=== PATIENT | male | born 1965 | race Caucasian/White ===

== ENCOUNTER → 2020-05-04 13:19 | Outpatient (POV) | payer BC, SELFPAY | PROVIDERS: Visit Provider Dermatology | DX: Z00.00 Encounter for general adult medical examination without abnormal findings (principal) ==

== ENCOUNTER → 2020-08-07 08:11 | Outpatient (CLI) | payer OTHER, SELFPAY ==
[2020-08-07 10:33] LABS: Chloride 102 mmol/L (98-107); Potassium 4.7 mmoL/L (3.5-5.1); Sodium 139 mmol/L (136-145)
[2020-08-07 10:36] LABS: Alanine Aminotransferase 73 U/L (12-78); Albumin Level 4.7 g/dl (3.5-5.0); Alkaline Phosphatase 89 U/L (38-126); Anion Gap 13.7 mEq/L (5-15); Aspartate Amino Transferase 44 U/L (17-59); Bilirubin,Total 0.5 mg/dl (0.2-1.3); Blood Urea Nitrogen 16 mg/dl (9-20); Calcium 9.5 mg/dl (8.4-10.2); Carbon Dioxide 28 mmol/L (22.0-30.0); Cholesterol 144 mg/dl (140-200); Estimated Glomerular Filt Rate 101 ml/min (>60); GFR (African American) 122 ML/MIN (>60); Globulin 2.4 g/dL (1.3-3.2); Glucose 221 mg/dl (74-100); HDL Cholesterol 24 mg/dl (40-60); Total Protein,Serum 7.1 g/dl (6.3-8.2)
[2020-08-07 10:48] LABS: Direct LDL Cholesterol 49.62 mg/dL (100-129)
[2020-08-07 11:44] LABS: Triglycerides 600 mg/dl (30-150)
[2020-08-07 12:25] LABS: Prostate Specific Ag Screen 0.3 ng/ml (0.0-4.0)
[2020-08-07 13:18] LABS: Hemoglobin A1C 8.6 % (4.0-6.0)
== END ==
PROVIDERS: Visit Provider Physician Assistant
DX: E11.9 Type 2 diabetes mellitus without complications (principal); E78.2 Mixed hyperlipidemia; Z12.5 Encounter for screening for malignant neoplasm of prostate
CPT/HCPCS: 36415; 80053; 80061; 83036; G0103

== ENCOUNTER 2020-09-03 15:28 | Inpatient (IN) | payer OTHER, SELFPAY ==
[2020-09-03 15:41] VITALS: BP 150/82; PULSE 100; RESP 18; TEMP 37.1; O2SAT 94; BMI 96.6
[2020-09-03 16:12] LABS: Basophils # 0.1 K/mm3 (0-0.2); Basophils % 0.5 % (0.1-2.0); Eosinophils # 0.1 K/mm3 (0.0-0.4); Eosinophils % 0.4 % (0.1-12.0); Lymphocytes # 1.3 K/mm3 (0.7-4.5); Lymphocytes % 11.8 % (10-50); Mean Corpuscular HGB Conc 34.8 g/dL (31.8-35.4); Mean Corpuscular Hemoglobin 31.3 pg (27.0-31.2); Mean Corpuscular Volume 89.7 fl (80-94); Mean Platelet Volume 8.6 fl (7.4-10.4); Monocytes # 0.3 K/mm3 (0.1-1.0); Monocytes % 2.4 % (1.7-9.3); Neutrophils # 9.4 K/mm3 (1.8-7.8); Platelet Count 214 K/mm3 (142-424); Red Blood Count 5.46 M/mm3 (4.60-6.20); Red Cell Distribution Width 13.5 % (11.5-17.5)
[2020-09-03 16:24] LABS: MANUAL DIFFERENTIAL MANUAL DIFFERENTIAL (MANUAL DIFF)
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
[2020-09-03 16:40] LABS: Alanine Aminotransferase 294 U/L (12-78); Albumin Level 4.7 g/dl (3.5-5.0); Albumin/Globulin Ratio 1.7 (1.1-1.8); Alkaline Phosphatase 145 U/L (38-126); Anion Gap 18.9 mEq/L (5-15); Aspartate Amino Transferase 163 U/L (17-59); Bilirubin,Total 2.2 mg/dl (0.2-1.3); Blood Urea Nitrogen 15 mg/dl (9-20); Calcium 9.8 mg/dl (8.4-10.2); Carbon Dioxide 17 mmol/L (22.0-30.0); Chloride 102 mmol/L (98-107); Creatinine Clearance Estimated 87 mL/min (50-200); Estimated Glomerular Filt Rate 78 ml/min (>60); GFR (African American) 94 ML/MIN (>60); Globulin 2.7 g/dL (1.3-3.2); Glucose 221 mg/dl (74-100); Potassium 3.9 mmoL/L (3.5-5.1); Sodium 134 mmol/L (136-145); Total Protein,Serum 7.4 g/dl (6.3-8.2)
[2020-09-03 17:17] LABS: POC Glucose,Bedside 200 (70-110)
[2020-09-03 17:25] LABS: Lymphocytes % 19 % (10-50); Monocytes % 1 % (2-9); Neutrophils % 80 % (42-76); Platelet Estimate Normal; RBC Morphology Normal; Total Cells Counted 100
--- NOTE | 2020-09-03 18:42 | PC.NURSE ---
PT NEW ADMIT. ONLY COMPLAINT THUS FAR IS ITCHING OF THE HANDS MAINLY. SPOKE WITH MARYAM OLVERA, SHE STATED SHE PUT ORDERS IN FOR THAT. PRN MEDICATION GIVEN WITH FAVORABLE RESULTS. PT DOES PRESENT WITH WELP/RASH T/O HIS BODY. HE IS UNSURE WHAT CAUSED THE RASH. HE STATED IT STARTED LAST NIGHT. VSS. CALL LIGHT WITHIN REACH. WILL CONT. TO MONITOR.
[2020-09-03 20:00] VITALS: BP 173/87; PULSE 89; RESP 20; TEMP 36.7; O2SAT 93
[2020-09-03 21:15] LABS: POC Glucose,Bedside 318 (70-110)
[2020-09-04 04:00] VITALS: BP 135/77; PULSE 97; RESP 17; TEMP 36.6; O2SAT 94
--- NOTE | 2020-09-04 04:40 | PC.NURSE ---
Pt has rested well this shift. States that the itching has improved some. Rash continues along with additionalPt is tachycardic swelling in hands and wrists. Pt tachycardic this AM. Other VSS. Lungs CTA. BS x4. No other concerns. Will continue to monitor.
[2020-09-04 06:00] VITALS: BMI 43.4
[2020-09-04 06:28] LABS: POC Glucose,Bedside 299 (70-110)
[2020-09-04 07:17] LABS: Basophils % 0.2 % (0.1-2.0); Eosinophils % 0.1 % (0.1-12.0); Hematocrit 45.5 % (42.0-52.0); Hemoglobin 15.5 g/dL (14.1-18.0); Lymphocytes % 10.7 % (10-50); Mean Corpuscular HGB Conc 34.1 g/dL (31.8-35.4); Mean Corpuscular Hemoglobin 31.2 pg (27.0-31.2); Mean Corpuscular Volume 91.5 fl (80-94); Mean Platelet Volume 8.6 fl (7.4-10.4); Monocytes # 0.2 K/mm3 (0.1-1.0); Monocytes % 1.6 % (1.7-9.3); Neutrophils # 8.5 K/mm3 (1.8-7.8); Neutrophils % 87.4 % (37.0-80.0); Platelet Count 211 K/mm3 (142-424); Red Blood Count 4.97 M/mm3 (4.60-6.20); Red Cell Distribution Width 13.4 % (11.5-17.5); White Blood Count 9.8 K/mm3 (4.8-10.8)
[2020-09-04 07:24] LABS: Alanine Aminotransferase 249 U/L (12-78); Albumin Level 4.3 g/dl (3.5-5.0); Albumin/Globulin Ratio 1.5 (1.1-1.8); Alkaline Phosphatase 129 U/L (38-126); Anion Gap 17.9 mEq/L (5-15); Aspartate Amino Transferase 110 U/L (17-59); Bilirubin,Total 1.3 mg/dl (0.2-1.3); Blood Urea Nitrogen 18 mg/dl (9-20); Calcium 9.2 mg/dl (8.4-10.2); Carbon Dioxide 20 mmol/L (22.0-30.0); Chloride 101 mmol/L (98-107); Creatinine Clearance Estimated 97 mL/min (50-200); Estimated Glomerular Filt Rate 88 ml/min (>60); GFR (African American) 106 ML/MIN (>60); Globulin 2.9 g/dL (1.3-3.2); Glucose 266 mg/dl (74-100); Potassium 3.9 mmoL/L (3.5-5.1); Sodium 135 mmol/L (136-145); Total Protein,Serum 7.2 g/dl (6.3-8.2)
[2020-09-04 07:34] VITALS: BP 139/72; PULSE 85; RESP 18; TEMP 36.6; O2SAT 95
[2020-09-04 07:37] LABS: MANUAL DIFFERENTIAL MANUAL DIFFERENTIAL (MANUAL DIFF)
[2020-09-04 08:22] LABS: Lymphocytes % 7 % (10-50); Monocytes % 3 % (2-9); Neutrophils % 90 % (42-76); Platelet Estimate Normal; RBC Morphology Normal; Total Cells Counted 100
--- NOTE | 2020-09-04 08:55 | HMH.ACPN2 ---
Internal Medicine - PN: Subj *Date: 09/04/20 *Time: 08:55 Interval history: The patient is seen this morning and states that he feels much better. There is less evidence of urticaria. He does complain of swelling of his lips. He is unable to pin down the etiology of his allergic reaction. In reviewing foods it does not appear obvious that there was a problem in this regard. He did state that he was doing yard work on Sunday before his symptoms started on . The recent change in medications certainly are a focus of concern regarding the allergic reaction. Exam Vital signs and Labs for Last 24 Hours: Temp Pulse Resp BP Pulse Ox 97.8 F 85 18 139/72 95 09/04/20 07:34 09/04/20 07:34 09/04/20 07:34 09/04/20 07:34 09/04/20 07:34 Laboratory Results - last 24 hr 09/03/20 16:00: WBC 11.0 H, RBC 5.46, Hgb 17.0, Hct 49.0, MCV 89.7, MCH 31.3 H, MCHC 34.8, RDW 13.5, Plt Count 214, MPV 8.6, Neut % (Auto) 85.0 H, Lymph % (Auto) 11.8, [place] % (Auto) 2.4, Eos % (Auto) 0.4, Baso % (Auto) 0.5, Neut # (Auto) 9.4 H, Lymph # (Auto) 1.3, [place] # (Auto) 0.3, Eos # (Auto) 0.1, Baso # (Auto) 0.1, Total Counted 100, Neutrophils % (Manual) 80 H, Lymphocytes % (Manual) 19, Monocytes % (Manual) 1 L, Platelet Estimate Normal, RBC Morphology Normal 09/03/20 16:00: Sodium 134 L, Potassium 3.9, Chloride 102, Carbon Dioxide 17 L, Anion Gap 18.9 H, BUN 15, Creatinine 1.00, Estimated Creat Clear 87, Estimated GFR 78, Est GFR ( Amer) 94, Glucose 221 H, Calcium 9.8, Total Bilirubin 2.2 H, AST 163 H, ALT 294 H, Alkaline Phosphatase 145 H, Total Protein 7.4, Albumin 4.7, Globulin 2.7, Albumin/Globulin Ratio 1.7 09/03/20 17:03: POC Glucose 200 H 09/03/20 20:50: POC Glucose 318 H* 09/04/20 06:08: POC Glucose 299 H 09/04/20 06:14: WBC 9.8, RBC 4.97, Hgb 15.5, Hct 45.5, MCV 91.5, MCH 31.2, MCHC 34.1, RDW 13.4, Plt Count 211, MPV 8.6, Neut % (Auto) 87.4 H, Lymph % (Auto) 10.7, [place] % (Auto) 1.6 L, Eos % (Auto) 0.1, Baso % (Auto) 0.2, Neut # (Auto) 8.5 H, Lymph # (Auto) 1.0, [place] # (Auto) 0.2, Eos # (Auto) 0.0, Baso # (Auto) 0.0, Total Counted 100, Neutrophils % (Manual) 90 H, Lymphocytes % (Manual) 7 L, Monocytes % (Manual) 3, Platelet Estimate Normal, RBC Morphology Normal 09/04/20 06:14: Sodium 135 L, Potassium 3.9, Chloride 101, Carbon Dioxide 20 L, Anion Gap 17.9 H, BUN 18, Creatinine 0.90, Estimated Creat Clear 97, Estimated GFR 88, Est GFR ( Amer) 106, Glucose 266 H D, Calcium 9.2, Total Bilirubin 1.3, AST 110 H D, ALT 249 H, Alkaline Phosphatase 129 H, Total Protein 7.2, Albumin 4.3, Globulin 2.9, Albumin/Globulin Ratio 1.5 I & O for Last 24 hours: Intake & Output 09/01/20 09/02/20 09/03/20 09/04/20 11:59 11:59 11:59 11:59 Intake Total 840 / 840 Balance 840 / 840 Weight 303 lb 6 oz Microbiology Reports for the Last 24 Hours: Microbiology 09/03/20 16:00 Nasopharyngeal Coronavirus COVID-19 PCR - Final Narrative: Interestingly his eosinophil count is not elevated. - Constitutional no acute distress - *Routine HEENT Exam Head: Present: normocephalic (But with surgical scars on his scalp.), facial swelling (His lips were bright pink and somewhat swollen. He also has some facial erythema in the glabellar area) Eye: Present: PERRL ENT: Present: mucous membranes moist - *Routine Respiratory Exam Present: CTA bilaterally. Absent: wheezes - *Routine Cardiovascular Exam Present: RRR - *Routine Abdominal Exam Present: soft. Absent: tenderness - *Routine Extremities Exam Present: edema (Trace of edema present.) - *Routine Skin Exam Present: intact. Absent: urticaria (But there is some mild erythema noted of his extremities.) Assessment and Plan (1) Allergic reaction Status: Acute Category: Medical Code(s): T78.40XA - Allergy, unspecified, initial encounter (2) Urticaria Status: Acute Category: Medical Code(s): L50.9 - Urticaria, unspecified (3) Hypertension Status: Chronic C
[2020-09-04 10:03] LABS: Hemoglobin A1C 8.5 % (4.0-6.0)
--- NOTE | 2020-09-04 11:04 | HMH.PHAVTE ---
[facility] Pharmacy VTE Monitoring - Patient Demographics Admission date: 09/03/20 Report Date: 09/04/20 Time: 11:04 Allergies/Adverse Reactions: Patient Allergies No Known Allergies Allergy (Unverified 09/04/20 08:33) Height: 1.78 m Weight: 137.609 kg Patient Problems: Current Active Problems Allergic reaction (Acute) Urticaria (Acute) Hypertension (Chronic) Hyperlipidemia (Chronic) Type 2 diabetes mellitus (Chronic) History of melanoma (Chronic) - VTE Risk Labs: VTE Related Lab Results Hgb 15.5 g/dL (14.1-18.0) 09/04/20 06:14 Hct 45.5 % (42.0-52.0) 09/04/20 06:14 Plt Count 211 K/mm3 (142-424) 09/04/20 06:14 BUN 18 mg/dl (9-20) 09/04/20 06:14 Creatinine 0.90 mg/dl (0.66-1.25) 09/04/20 06:14 Estimated Creat Clear 97 mL/min (50-200) 09/04/20 06:14 VTE Score: 3 VTE Risk Level: Low Risk - Prophylaxis VTE Prophylaxis Ordered?: Yes Types of VTE Prophylaxis: TEDS Knee High Location of Applied Device: Bilateral Lower Extremeties
[2020-09-04 11:48] LABS: POC Glucose,Bedside 357 (70-110)
--- NOTE | 2020-09-04 12:05 | HMH.PHAINT ---
MEDICATION RECONCILIATION COMPLETED ON PATIENT USING EXTERNAL FILL HISTORY FROM PHARMACY, LIST PROVIDED BY SPOUSE, AND CALL TO [facility] IN [place]. -ROBERT HUERTASD
--- NOTE | 2020-09-04 15:36 | PC.NURSE ---
pt has done ok today. this am pt c/o swelling to lips and rash returning to chest, md already aware when he rounded. orders put in and carried out. pt has not since complained of any new rash returning. pt is independent and had as shower today. vss. will cont. to monitor.
[2020-09-04 15:38] VITALS: BP 154/87; PULSE 94; RESP 16; TEMP 36.8; O2SAT 97
[2020-09-04 16:42] LABS: POC Glucose,Bedside 427 (70-110)
[2020-09-04 20:00] VITALS: BP 161/97; PULSE 99; RESP 17; TEMP 36.8; O2SAT 93
--- NOTE | 2020-09-04 20:13 | PC.NURSE ---
notified of FSBS 476. Humalog 15 units administered. Recheck in 4 hrs.
[2020-09-04 21:37] LABS: POC Glucose,Bedside 476 (70-110)
[2020-09-05 00:02] LABS: POC Glucose,Bedside 380 (70-110)
--- NOTE | 2020-09-05 00:20 | PC.NURSE ---
notified of FSBS 380. No new orders at this time.
--- NOTE | 2020-09-05 03:22 | PC.NURSE ---
No acute changes since last assessment. Pt has slept well the later part of shift. Was up to chair early in night with c/o itching. Medicated per jul. FSBS has been elevated this shift. MD aware. BP has been elevated. Pt continues to be tachycardic. No other complaints or concerns. Will continue to monitor.
[2020-09-05 03:51] VITALS: BP 131/74; PULSE 74; RESP 20; TEMP 36.6; O2SAT 94
[2020-09-05 05:17] VITALS: BMI 43.0
--- NOTE | 2020-09-05 05:36 | PC.NURSE ---
Pt's swelling has improved in hands and wrists. He continues to scratch at skin. Pt states that he has been itching more tonight. BP has improved this AM.
[2020-09-05 06:42] LABS: POC Glucose,Bedside 322 (70-110)
[2020-09-05 07:37] VITALS: BP 159/88; PULSE 80; RESP 18; TEMP 36.6; O2SAT 91
[2020-09-05 10:12] LABS: MANUAL DIFFERENTIAL MANUAL DIFFERENTIAL (MANUAL DIFF)
[2020-09-05 10:26] LABS: Alanine Aminotransferase 180 U/L (12-78); Albumin Level 4.2 g/dl (3.5-5.0); Albumin/Globulin Ratio 1.4 (1.1-1.8); Alkaline Phosphatase 128 U/L (38-126); Anion Gap 10.8 mEq/L (5-15); Aspartate Amino Transferase 54 U/L (17-59); Basophils % 0.2 % (0.1-2.0); Bilirubin,Total 0.7 mg/dl (0.2-1.3); Blood Urea Nitrogen 29 mg/dl (9-20); Carbon Dioxide 29 mmol/L (22.0-30.0); Chloride 98 mmol/L (98-107); Creatinine Clearance Estimated 87 mL/min (50-200); Eosinophils % 0.3 % (0.1-12.0); Estimated Glomerular Filt Rate 78 ml/min (>60); GFR (African American) 94 ML/MIN (>60); Globulin 3.1 g/dL (1.3-3.2); Hematocrit 46.2 % (42.0-52.0); Hemoglobin 15.7 g/dL (14.1-18.0); Lymphocytes # 1.3 K/mm3 (0.7-4.5); Lymphocytes % 8.9 % (10-50); Mean Corpuscular HGB Conc 33.9 g/dL (31.8-35.4); Mean Corpuscular Hemoglobin 31.1 pg (27.0-31.2); Mean Corpuscular Volume 91.7 fl (80-94); Mean Platelet Volume 8.4 fl (7.4-10.4); Monocytes # 0.4 K/mm3 (0.1-1.0); Monocytes % 2.6 % (1.7-9.3); Neutrophils # 12.7 K/mm3 (1.8-7.8); Platelet Count 261 K/mm3 (142-424); Potassium 4.8 mmoL/L (3.5-5.1); Red Blood Count 5.03 M/mm3 (4.60-6.20); Red Cell Distribution Width 13.7 % (11.5-17.5); Sodium 133 mmol/L (136-145); Total Protein,Serum 7.3 g/dl (6.3-8.2); White Blood Count 14.4 K/mm3 (4.8-10.8)
[2020-09-05 10:28] LABS: Glucose 425 mg/dl (74-100)
[2020-09-05 10:29] LABS: Lymphocytes % 9 % (10-50); Monocytes % 4 % (2-9); Neutrophils % 87 % (42-76); Platelet Estimate Normal; RBC Morphology Normal; Total Cells Counted 100
[2020-09-05 11:57] LABS: POC Glucose,Bedside 386 (70-110)
--- NOTE | 2020-09-05 12:34 | HMH.ACPN2 ---
Internal Medicine - PN: Subj *Date: 09/05/20 *Time: 12:34 Interval history: He continues to have flareups of the rash. Last night he had ice cream both chocolate and vanilla and this seemed to trigger a flareup. He has been itching most of the night. He does not appear to be swollen. Alkaline phosphatase remains elevated. ALT and AST have improved. White blood cell count remains elevated. H. pylori results are pending. Exam Vital signs and Labs for Last 24 Hours: Temp Pulse Resp BP Pulse Ox 97.9 F 80 18 159/88 H 91 L 09/05/20 07:37 09/05/20 07:37 09/05/20 07:37 09/05/20 07:37 09/05/20 07:37 Laboratory Results - last 24 hr 09/04/20 16:27: POC Glucose 427 H* 09/04/20 19:57: POC Glucose 476 H* 09/04/20 23:54: POC Glucose 380 H* 09/05/20 06:18: POC Glucose 322 H* 09/05/20 10:09: Sodium 133 L, Potassium 4.8 D, Chloride 98, Carbon Dioxide 29 D, Anion Gap 10.8, BUN 29 H D, Creatinine 1.00, Estimated Creat Clear 87, Estimated GFR 78, Est GFR ( Amer) 94, Glucose 425 H*, Calcium 9.0, Total Bilirubin 0.7, AST 54 D, ALT 180 H D, Alkaline Phosphatase 128 H, Total Protein 7.3, Albumin 4.2, Globulin 3.1, Albumin/Globulin Ratio 1.4 09/05/20 10:09: WBC 14.4 H D, RBC 5.03, Hgb 15.7, Hct 46.2, MCV 91.7, MCH 31.1, MCHC 33.9, RDW 13.7, Plt Count 261, MPV 8.4, Neut % (Auto) 88.0 H, Lymph % (Auto) 8.9 L, [place] % (Auto) 2.6, Eos % (Auto) 0.3, Baso % (Auto) 0.2, Neut # (Auto) 12.7 H, Lymph # (Auto) 1.3, [place] # (Auto) 0.4, Eos # (Auto) 0.0, Baso # (Auto) 0.0, Total Counted 100, Neutrophils % (Manual) 87 H, Lymphocytes % (Manual) 9 L, Monocytes % (Manual) 4, Platelet Estimate Normal, RBC Morphology Normal 09/05/20 11:40: POC Glucose 386 H* I & O for Last 24 hours: Intake & Output 09/03/20 09/04/20 09/05/20 09/06/20 11:59 11:59 11:59 11:59 Intake Total 840 / 840 1080 / 1080 Balance 840 / 840 1080 / 1080 Weight 303 lb 6 oz 300 lb 2 oz - Constitutional no acute distress - *Routine HEENT Exam Head: Present: normocephalic ENT: Present: mucous membranes moist (Lips do not appear swollen) - *Routine Respiratory Exam Present: CTA bilaterally - *Routine Cardiovascular Exam Present: RRR - *Routine Abdominal Exam Present: soft. Absent: tenderness - *Routine Extremities Exam Absent: edema - *Routine Skin Exam Absent: urticaria (No urticaria but there is a subtle erythema of the trunk and extremities.) Assessment and Plan (1) Allergic reaction Status: Acute Category: Medical Code(s): T78.40XA - Allergy, unspecified, initial encounter (2) Urticaria Status: Acute Category: Medical Code(s): L50.9 - Urticaria, unspecified (3) Hypertension Status: Chronic Category: Medical Code(s): I10 - Essential (primary) hypertension (4) Hyperlipidemia Status: Chronic Category: Medical Code(s): E78.5 - Hyperlipidemia, unspecified (5) Type 2 diabetes mellitus Status: Chronic Category: Medical Code(s): E11.9 - Type 2 diabetes mellitus without complications (6) History of melanoma Status: Chronic Category: Medical Code(s): Z85.820 - Personal history of malignant melanoma of skin (7) Elevated liver function tests Status: Acute Category: Medical Code(s): R79.89 - Other specified abnormal findings of blood chemistry - Assessment and plan all Dx Assessment and Plan for all problems:: I am adding Lantus for control of the blood sugars. The blood sugars are additionally elevated by the steroids. Ultrasound of the liver is ordered. Arthritis profile will also be ordered.
--- NOTE | 2020-09-05 12:41 | XR_ITS ---
PROCEDURE INFORMATION: Exam: XR Chest Exam date and time: 09/05/2020 12:41 PM Age: 55 years old Clinical indication: Other: Urticaria of unknown origin; Additional info: Urticaria of unknown etiology TECHNIQUE: Imaging protocol: XR of the chest. Views: 2 views. COMPARISON: CR CXR CHEST(2 VIEWS-NOT PORTABLE) 01/28/2014 9:51 AM FINDINGS: Lungs: Unremarkable. No consolidation. Pleural spaces: Unremarkable. No pleural effusion. No pneumothorax. Heart/Mediastinum: Unremarkable. No cardiomegaly. Bones/joints: Unremarkable. IMPRESSION: No acute findings.
[2020-09-05 12:55] LABS: Uric Acid 6.6 mg/dl (3.5-8.5)
[2020-09-05 13:17] LABS: Erythrocyte Sedimentation Rate 90 mm/hr (0-20)
[2020-09-05 16:00] VITALS: BP 123/67; PULSE 77; RESP 18; TEMP 36.3; O2SAT 96
[2020-09-05 16:59] LABS: POC Glucose,Bedside 403 (70-110)
--- NOTE | 2020-09-05 17:18 | PC.NURSE ---
pt is a&ox4. he has c/o itching to bilat arms and chest this am, no further complaints. pt ambulated t/o halls. vss. call light within reach. will cont. to monitor.
--- NOTE | 2020-09-05 17:41 | PC.NURSE ---
per radiology, they contacted the corporate vp advertising & online technical maintenance technician, and pt needs to be npo after midnight for the ultrasound.
[2020-09-05 19:09] LABS: Microscopic, Urine URINE MICROSCOPIC (MICROSCOPIC)
[2020-09-05 19:15] LABS: Appearance,Urine CLEAR (Clear); Bilirubin,Urine Negative (Negative); Blood, Urine Negative (Negative); Color,Urine YELLOW (Yellow); Glucose,Urine (UA) 3+ (Negative); Ketones,Urine Negative (Negative); Leukocyte Esterase,Urine Negative (Negative); Nitrate,Urine Negative (Negative); Protein,Urine Negative (Negative); Specific Gravity, Urine 1.015 (1.005-1.030); Urobilinogen,Urine 0.2 EU/dl (0.2)
[2020-09-05 19:21] LABS: WBC,Urine Occasional #/hpf (0-3)
[2020-09-05 20:00] VITALS: BP 155/70; PULSE 73; RESP 18; TEMP 36.6; O2SAT 93
[2020-09-05 21:11] LABS: POC Glucose,Bedside 495 (70-110)
[2020-09-06 03:31] VITALS: BP 143/76; PULSE 70; RESP 18; TEMP 36.5; O2SAT 97
--- NOTE | 2020-09-06 03:56 | PC.NURSE ---
Pt states that he is not scratching as much since last dose of doxepin. Skin assessed and noted to be less pink. Rash is still present though. Spoke with MD Lynn early in shift due to elevated fsbs. Humalog changed to high intensity SS. One time dose of doxepin 25 mg also ordered. VSS. Pt is NPO at this time for AM US. No other concerns. Will continue to monitor.
[2020-09-06 05:05] VITALS: BMI 42.9
[2020-09-06 06:11] LABS: POC Glucose,Bedside 347 (70-110)
[2020-09-06 08:00] VITALS: BP 106/54; PULSE 59; RESP 19; TEMP 36.5; O2SAT 94
--- NOTE | 2020-09-06 08:13 | HMH.ACPN2 ---
Internal Medicine - PN: Subj *Date: 09/06/20 *Time: 08:13 Interval history: He states that he feels better today. There is less itching. He slept quite soundly with the increased dose of doxepin but has some grogginess this morning. A liver ultrasound is pending for this morning. Exam Vital signs and Labs for Last 24 Hours: Temp Pulse Resp BP Pulse Ox 97.7 F 70 18 143/76 H 97 09/06/20 03:31 09/06/20 03:31 09/06/20 03:31 09/06/20 03:31 09/06/20 03:31 Laboratory Results - last 24 hr 09/05/20 10:09: Sodium 133 L, Potassium 4.8 D, Chloride 98, Carbon Dioxide 29 D, Anion Gap 10.8, BUN 29 H D, Creatinine 1.00, Estimated Creat Clear 87, Estimated GFR 78, Est GFR ( Amer) 94, Glucose 425 H*, Calcium 9.0, Total Bilirubin 0.7, AST 54 D, ALT 180 H D, Alkaline Phosphatase 128 H, Total Protein 7.3, Albumin 4.2, Globulin 3.1, Albumin/Globulin Ratio 1.4 09/05/20 10:09: WBC 14.4 H D, RBC 5.03, Hgb 15.7, Hct 46.2, MCV 91.7, MCH 31.1, MCHC 33.9, RDW 13.7, Plt Count 261, MPV 8.4, Neut % (Auto) 88.0 H, Lymph % (Auto) 8.9 L, [place] % (Auto) 2.6, Eos % (Auto) 0.3, Baso % (Auto) 0.2, Neut # (Auto) 12.7 H, Lymph # (Auto) 1.3, [place] # (Auto) 0.4, Eos # (Auto) 0.0, Baso # (Auto) 0.0, Total Counted 100, Neutrophils % (Manual) 87 H, Lymphocytes % (Manual) 9 L, Monocytes % (Manual) 4, Platelet Estimate Normal, RBC Morphology Normal 09/05/20 10:09: ESR 90 H 09/05/20 10:09: Uric Acid 6.6 09/05/20 11:40: POC Glucose 386 H* 09/05/20 16:42: POC Glucose 403 H* 09/05/20 19:02: Urine Color Yellow, Urine Appearance Clear, Urine pH 6.0, Ur Specific [place] 1.015, Urine Protein Negative, Urine Glucose (UA) 3+, Urine Ketones Negative, Urine Blood Negative, Urine Nitrate Negative, Urine Bilirubin Negative, Urine Urobilinogen 0.2, Ur Leukocyte Esterase Negative, Urine RBC None, Urine WBC Occasional, Ur Squamous Epith Cells None, Urine Bacteria None 09/05/20 20:50: POC Glucose 495 H* 09/06/20 06:01: POC Glucose 347 H* I & O for Last 24 hours: Intake & Output 09/03/20 09/04/20 09/05/20 09/06/20 11:59 11:59 11:59 11:59 Intake Total 840 / 840 1080 / 1080 720 / 720 Balance 840 / 840 1080 / 1080 720 / 720 Weight 303 lb 6 oz 300 lb 2 oz 300 lb - Constitutional no acute distress - *Routine HEENT Exam Head: Present: normocephalic Eye: Present: PERRL ENT: Present: mucous membranes moist - *Routine Neck Exam Absent: lymphadenopathy - Routine Chest/Breast/Axilla Exam Chest wall: Present: tenderness - *Routine Respiratory Exam Present: CTA bilaterally - *Routine Cardiovascular Exam Present: RRR - *Routine Abdominal Exam Present: soft, obese - *Routine Extremities Exam Present: edema (Trace) - *Routine Neurological Exam Present: alert, oriented X3 Assessment and Plan (1) Allergic reaction Status: Acute Category: Medical Code(s): T78.40XA - Allergy, unspecified, initial encounter (2) Urticaria Status: Acute Category: Medical Code(s): L50.9 - Urticaria, unspecified (3) Hypertension Status: Chronic Category: Medical Code(s): I10 - Essential (primary) hypertension (4) Hyperlipidemia Status: Chronic Category: Medical Code(s): E78.5 - Hyperlipidemia, unspecified (5) Type 2 diabetes mellitus Status: Chronic Category: Medical Code(s): E11.9 - Type 2 diabetes mellitus without complications (6) History of melanoma Status: Chronic Category: Medical Code(s): Z85.820 - Personal history of malignant melanoma of skin (7) Elevated liver function tests Status: Acute Category: Medical Code(s): R79.89 - Other specified abnormal findings of blood chemistry - Assessment and plan all Dx Assessment and Plan for all problems:: Ultrasound of the liver this morning. I hope to discharge him soon.
--- NOTE | 2020-09-06 10:35 | PC.NURSE ---
Have called and inquired about diet on pt as he is NPO at this time and requesting diet. Liver u/s results reported to [facility] at 1029.
[2020-09-06 12:06] LABS: POC Glucose,Bedside 332 (70-110)
--- NOTE | 2020-09-06 12:32 | US_ITS ---
PROCEDURE: US LIVER CLINICAL INDICATION: elevated liver functions COMPARISON: No exams were available for comparison FINDINGS: PANCREAS: Unremarkable. No obvious mass or abnormal fluid collection. No ductal dilatation LIVER: Diffuse increased echogenicity of the liver with poor through transmission of sound consistent with hepatic steatosis. The increased echogenicity of the liver makes it very difficult to evaluate for underlying liver lesions.. There is appropriate direction of blood flow within non dilated portal vein. RIGHT KIDNEY: Unremarkable. Normal size and echogenicity. No hydronephrosis GALLBLADDER: Somewhat difficulty with gallbladder evaluation due to the diffuse increased echogenicity and shadowing from the liver. No definite gallstones, gallbladder wall thickening or pericholecystic fluid. There may be some sludge in the gallbladder. This however is difficult to evaluate. IMPRESSION: 1. Hepatic steatosis 2. No gallstones apparent. Questionable gallbladder sludge. Dictated by: Nakul Rodriguez MD 09/06/2020 09:38 Nakul Rodriguez MD in [place] 09/06/2020 09:38
[2020-09-06 13:24] VITALS: BMI 42.9
[2020-09-06 16:00] VITALS: BP 179/95; PULSE 60; RESP 18; TEMP 36.8; O2SAT 97
[2020-09-06 17:38] LABS: POC Glucose,Bedside 300 (70-110)
--- NOTE | 2020-09-06 19:48 | HMH.ACPN2 ---
Internal Medicine - PN: Subj *Date: 09/06/20 *Time: 19:48 Interval history: Steatohepatitis on liver US. Still with fluctuating symptoms. I reviewed NIH report on Methotrexate treatment in Chronic Idiopathic Urticaria (Andrew et Al. Br. J. Dermatol. 2010 May.). I also ordered test for thyroglobulin antibodies. He refused his BP medication this AM, consequently his BP is elevated. Will dose Irbesartan this PM. Exam Vital signs and Labs for Last 24 Hours: Temp Pulse Resp BP Pulse Ox 98.2 F 60 18 179/95 H 97 09/06/20 16:00 09/06/20 16:00 09/06/20 16:00 09/06/20 16:00 09/06/20 16:00 Laboratory Results - last 24 hr 09/05/20 20:50: POC Glucose 495 H* 09/06/20 06:01: POC Glucose 347 H* 09/06/20 11:49: POC Glucose 332 H* 09/06/20 16:50: POC Glucose 300 H I & O for Last 24 hours: Intake & Output 09/04/20 09/05/20 09/06/20 09/07/20 11:59 11:59 11:59 11:59 Intake Total 840 / 840 1080 / 1080 720 / 720 1320 / 1320 Balance 840 / 840 1080 / 1080 720 / 720 1320 / 1320 Weight 303 lb 6 oz 300 lb 2 oz 300 lb 299 lb 13.259 oz Assessment and Plan (1) Allergic reaction Status: Acute Category: Medical Code(s): T78.40XA - Allergy, unspecified, initial encounter (2) Urticaria Status: Acute Category: Medical Code(s): L50.9 - Urticaria, unspecified (3) Hypertension Status: Chronic Category: Medical Code(s): I10 - Essential (primary) hypertension (4) Hyperlipidemia Status: Chronic Category: Medical Code(s): E78.5 - Hyperlipidemia, unspecified (5) Type 2 diabetes mellitus Status: Chronic Category: Medical Code(s): E11.9 - Type 2 diabetes mellitus without complications (6) History of melanoma Status: Chronic Category: Medical Code(s): Z85.820 - Personal history of malignant melanoma of skin (7) Elevated liver function tests Status: Acute Category: Medical Code(s): R79.89 - Other specified abnormal findings of blood chemistry - Assessment and plan all Dx Assessment and Plan for all problems:: Methotrexate 7.5 mg ordered. Will need to increase to 10mg to 15 mg weekly as outpatient. Hope this will allow decrease in Prednisone.
[2020-09-06 20:00] VITALS: BP 155/96; PULSE 63; RESP 18; TEMP 36.6; O2SAT 96
--- NOTE | 2020-09-06 21:04 | PC.NURSE ---
Pt alert and oriented and able to make needs known. Has had a couple episodes of the urticaria after meals. Meds given per jul. Did offer pt cool cloth or to call for an ointment or cream, but he refused. Pts bp was low this am and then elevated this afternoon. Pt did refuse bp meds this am. Dr. Lynn made aware and ordered a x 1 dose of irbesartan this evening. Meds per jul. CB in reach. Pt independen and other VSS. Lungs cta and s1,s2 heart sounds.
--- NOTE | 2020-09-06 22:03 | PC.NURSE ---
MD Flynn notified that medication, methotrexate is not available.
[2020-09-06 22:38] LABS: POC Glucose,Bedside 441 (70-110)
[2020-09-07 04:00] VITALS: BP 135/75; PULSE 61; RESP 18; TEMP 37.3; O2SAT 95
--- NOTE | 2020-09-07 05:32 | PC.NURSE ---
Pt states he has scratched less overnight. Has slept well. BP has improved this AM. Remains on RA. BS x4. FSBS has been 441 and 336 this AM. Pt is currently in the chair drinking coffee. No other concerns. Will continue to monitor.
[2020-09-07 05:48] VITALS: BMI 42.6
[2020-09-07 06:05] LABS: POC Glucose,Bedside 336 (70-110)
[2020-09-07 08:00] VITALS: BP 138/76; PULSE 65; RESP 19; TEMP 36.4; O2SAT 95
--- NOTE | 2020-09-07 09:11 | HMH.ACPN2 ---
Internal Medicine - PN: Subj *Date: 09/07/20 *Time: 09:11 Interval history: States he is better this morning. He did sleep well. He continues to have rash and itching after eating which gradually fades He had a liver ultrasound yesterday which showed hepatic stable Steatosis with no gallstones apparent. Questionable gallbladder sludge. Blood sugars remain elevated 300+. H. pylori antibody was normal.Continues on doxepin 10 mg every 6 hours, Pepcid 20 mg twice daily, Lantus 8 units subcu daily along with a sliding scale. And Solu-Medrol 60 mg IV every 6 hours along with singular 10 mg daily Methotrexate was ordered last p.m. and was not given due to inavailability. Pharmacy will obtain this a.m. Exam Vital signs and Labs for Last 24 Hours: Temp Pulse Resp BP Pulse Ox 97.6 F 65 19 138/76 95 09/07/20 08:00 09/07/20 08:00 09/07/20 08:00 09/07/20 08:00 09/07/20 08:00 Laboratory Results - last 24 hr 09/04/20 06:14: H. pylori IgG Antibody 0.17 09/06/20 11:49: POC Glucose 332 H* 09/06/20 16:50: POC Glucose 300 H 09/06/20 21:28: POC Glucose 441 H* 09/07/20 05:45: POC Glucose 336 H* I & O for Last 24 hours: Intake & Output 09/04/20 09/05/20 09/06/20 09/07/20 11:59 11:59 11:59 11:59 Intake Total 840 / 840 1080 / 1080 720 / 720 1800 / 1800 Output Total 0 / 0 Balance 840 / 840 1080 / 1080 720 / 720 1800 / 1800 Weight 303 lb 6 oz 300 lb 2 oz 300 lb 298 lb 1 oz - Constitutional no acute distress Comments: Appears comfortable sitting in recliner at bedside - *Routine Respiratory Exam Present: CTA bilaterally (Anteriorly and posteriorly) - *Routine Cardiovascular Exam Present: RRR - *Routine Abdominal Exam Present: soft, normoactive bowel sounds, obese. Absent: tenderness, distended - *Routine Extremities Exam Absent: edema, calf tenderness - *Routine Skin Exam Present: intact, rash (Fading. Face less erythemic today) Assessment and Plan (1) Allergic reaction Status: Acute Category: Medical Code(s): T78.40XA - Allergy, unspecified, initial encounter (2) Urticaria Status: Acute Category: Medical Code(s): L50.9 - Urticaria, unspecified (3) Hypertension Status: Chronic Category: Medical Code(s): I10 - Essential (primary) hypertension (4) Hyperlipidemia Status: Chronic Category: Medical Code(s): E78.5 - Hyperlipidemia, unspecified (5) Type 2 diabetes mellitus Status: Chronic Category: Medical Code(s): E11.9 - Type 2 diabetes mellitus without complications (6) History of melanoma Status: Chronic Category: Medical Code(s): Z85.820 - Personal history of malignant melanoma of skin (7) Elevated liver function tests Status: Acute Category: Medical Code(s): R79.89 - Other specified abnormal findings of blood chemistry - Assessment and plan all Dx Assessment and Plan for all problems:: Patient will continue on current meds. He will receive the dose of methotrexate this morning.
[2020-09-07 09:42] LABS: POC Glucose,Bedside 446 (70-110)
[2020-09-07 11:46] LABS: POC Glucose,Bedside 384 (70-110)
--- NOTE | 2020-09-07 13:45 | PC.NURSE ---
THIS RN PROVIDED D/C INSTRUCTIONS TO PATIENT AND SPOUSE. THIS RN PROVIDED INSULIN PEN EDUCATION TO PATIENT AND SPOUSE. PATIENT AND SPOUSE VERBALIZED AN UNDERSTANDING. NO NEW NEEDS OR CONCERNS AT D/C.
[2020-09-09 12:44] LABS: RA Latex Turbid. 10.4 IU/mL (0.0-13.9)
[2020-09-09 12:49] LABS: Thyroglobulin IMA CHARGE YES; Thyroglobulin Level <1.0 IU/mL (0.0-0.9)
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
[2020-09-13 20:31] LABS: Anti-DNA (DS) Ab Charge YES; Anti-DNA (DS) Ab Qn <1; Antinuclear Antibodies (ANA) POSITIVE; RNP Antibodies 0.2; RNP Antibodies Charge YES; Smith Antibodies Charge YES
[2020-09-13 20:32] LABS: Anti-Centromere B Abs Charge YES; Anti-Centromere B Antibodies <0.2; Anti-Jo-1 <0.2; Anti-Jo-1 Charge YES; Antichromatin Abs Charge YES; Antichromatin Antibodies <0.2; Sjogren's Anti-SS-A 4.8; Sjogren's Anti-SS-A Ab Charge YES; Sjogren's Anti-SS-B <0.2; Sjogren's Anti-SS-B Ab Charge YES
== END 2020-09-07 12:49 | disposition home or self-care (01) | DRG 607 ==
PROVIDERS: Family Medicine; Admitting Provider Family Medicine; PCP Physician Assistant; Visit Provider Family Medicine
DX: L50.9 Urticaria, unspecified (principal); T78.40XA Allergy, unspecified, initial encounter; E11.9 Type 2 diabetes mellitus without complications; Z87.891 Personal history of nicotine dependence; I10 Essential (primary) hypertension; Z85.820 Personal history of malignant melanoma of skin; E78.5 Hyperlipidemia, unspecified; R79.89 Other specified abnormal findings of blood chemistry; Z79.82 Long term (current) use of aspirin; Z79.84 Long term (current) use of oral hypoglycemic drugs; K76.0 Fatty (change of) liver, not elsewhere classified
CPT/HCPCS: 36415; 71046; 76705; 80053; 81001; 82962; 83036; 84443; 84550; 85007; 85014; 85018; 85025; 85048; 85049; 85651; 86038; 86225; 86235; 86431; 86677; 86800; U0003

== ENCOUNTER → 2020-10-12 15:39 | Outpatient (POV) | payer OTHER, SELFPAY ==
[2020-10-12 16:43] LABS: Basophils % 0.4 % (0.1-2.0); Eosinophils # 0.1 K/mm3 (0.0-0.4); Hematocrit 45.6 % (42.0-52.0); Lymphocytes # 2.5 K/mm3 (0.7-4.5); Lymphocytes % 27.3 % (10-50); Mean Corpuscular HGB Conc 35.2 g/dL (31.8-35.4); Mean Corpuscular Hemoglobin 31.3 pg (27.0-31.2); Mean Corpuscular Volume 89.1 fl (80-94); Mean Platelet Volume 7.2 fl (7.4-10.4); Monocytes # 0.4 K/mm3 (0.1-1.0); Monocytes % 4.7 % (1.7-9.3); Neutrophils % 66.6 % (37.0-80.0); Platelet Count 222 K/mm3 (142-424); Red Blood Count 5.11 M/mm3 (4.60-6.20); Red Cell Distribution Width 14.1 % (11.5-17.5); White Blood Count 9.1 K/mm3 (4.8-10.8)
[2020-10-12 17:20] LABS: Chloride 101 mmol/L (98-107); Potassium 3.5 mmoL/L (3.5-5.1); Sodium 136 mmol/L (136-145)
[2020-10-12 17:22] LABS: Blood Urea Nitrogen 19 mg/dl (9-20)
[2020-10-12 17:23] LABS: Alanine Aminotransferase 46 U/L (12-78); Albumin Level 4.6 g/dl (3.5-5.0); Albumin/Globulin Ratio 1.9 (1.1-1.8); Alkaline Phosphatase 75 U/L (38-126); Aspartate Amino Transferase 25 U/L (17-59); Bilirubin,Total 0.6 mg/dl (0.2-1.3); Estimated Glomerular Filt Rate 101 ml/min (>60); GFR (African American) 122 ML/MIN (>60); Globulin 2.4 g/dL (1.3-3.2); Glucose 76 mg/dl (74-100)
[2020-10-12 19:45] LABS: Anion Gap 13.5 mEq/L (5-15); Carbon Dioxide 25 mmol/L (22.0-30.0)
== END ==
PROVIDERS: Visit Provider Dermatology
DX: Z79.899 Other long term (current) drug therapy (principal)
CPT/HCPCS: 36415; 80053; 85025

== ENCOUNTER 2023-05-30 16:43 | Outpatient (CLI) | payer BC, OTHER, SELFPAY ==
--- NOTE | 2023-05-30 16:48 | XR_ITS ---
PROCEDURE INFORMATION: Exam: XR Left Shoulder Exam date and time: 05/30/2023 4:50 PM Age: 58 years old Clinical indication: Pain; Shoulder; Left; Additional info: Arm paresthesia TECHNIQUE: Imaging protocol: Radiologic exam of the left shoulder. Views: 2 or more views. COMPARISON: CR XR CHEST 2V 09/05/2020 1:41 PM FINDINGS: Bones/joints: Minimal degenerative change of the acromioclavicular joint as well as some periarticular calcification is noted. No acute osseous injury is identified. The osseous structures appear intact with no evidence of acute fracture, dislocation, or malalignment. Joint spaces are otherwise preserved. No abnormal bone density or destructive lesions are noted. Soft tissues: Soft tissues appear unremarkable. IMPRESSION: At the time of imaging, there is no evidence for acute osseous abnormalities. Clinical correlation is advised for comprehensive assessment.
== END 2023-05-30 23:59 ==
PROVIDERS: PCP Physician Assistant; Visit Provider Physician Assistant
DX: R20.2 Paresthesia of skin (principal)
CPT/HCPCS: 73030

== ENCOUNTER 2023-06-08 16:15 | Outpatient (CLI) | payer BC, OTHER, SELFPAY ==
--- NOTE | 2023-06-08 16:20 | XR_ITS ---
PROCEDURE INFORMATION: Exam: XR Cervical Spine Exam date and time: 06/08/2023 4:24 PM Age: 58 years old Clinical indication: Neck pain; Additional info: Radiculopathy of cervicothoracic region TECHNIQUE: Imaging protocol: Radiologic exam of the cervical spine. Views: 4 or 5 views. COMPARISON: CR XR THORACIC SPINE 2V 06/08/2023 4:24 PM FINDINGS: Bones/joints: No acute fracture of the cervical spine. No subluxation or dislocation of the cervical spine. Intervertebral disc space narrowing C5 through C7 may represent degenerative disc disease.. Anterior osteophyte formation C5 through C7. Posterior osteophyte formation C5 through C7. Degenerative changes in the facets at multiple levels. Degenerative changes at C1/C2 Soft tissues: Unremarkable. IMPRESSION: 1. No acute fracture of the cervical spine. 2. No subluxation or dislocation of the cervical spine. 3. Intervertebral disc space narrowing C5 through C7 may represent degenerative disc disease..
--- NOTE | 2023-06-08 16:21 | XR_ITS ---
PROCEDURE INFORMATION: Exam: XR Thoracic Spine Exam date and time: 06/08/2023 4:24 PM Age: 58 years old Clinical indication: Pain in thoracic spine; Additional info: Radiculopathy of cervicothoracic region TECHNIQUE: Imaging protocol: Radiologic exam of the thoracic spine. Views: 2 views. COMPARISON: CR XR CERVICAL SPINE 5V 06/08/2023 4:24 PM FINDINGS: Bones/joints: There is no evidence of acute fracture.There is no evidence of malalignment or dislocation. Mild anterior osteophyte formation Soft tissues: Unremarkable. IMPRESSION: There is no evidence of acute fracture.There is no evidence of malalignment or dislocation.
== END 2023-06-08 23:59 ==
LOC: RAD 16:16
PROVIDERS: PCP Family Medicine; Visit Provider Family Medicine
DX: M54.13 Radiculopathy, cervicothoracic region (principal)
CPT/HCPCS: 72050; 72070

== ENCOUNTER 2023-06-12 08:44 | Outpatient (RCR) | payer BC, OTHER, SELFPAY ==
--- NOTE | 2023-06-12 09:34 | HMH.PTOPEV ---
PT Outpatient Evaluation Rehab PT Outpatient Evaluation Start: 06/12/23 09:22 Freq: Status: Active Protocol: Document 06/12/23 09:22 JOCELYN (Rec: 06/12/23 09:34 JOCELYN [id number]) E-signed By Miguel Savage, PT Outpatient Therapy Subjective History Subjective History Pt reports insidious onset left shoulder blade pain beginning ~1 month ago. Pt reports shoulder blade has progressed with some intermittent neck (left side) , and with radicular s/s from left shoulder down left arm to hand with pain and N&T. Pt reports recent xray of cervical spine has revealed some degenerative changes. New diagnosis of cancer in past 12 No months? Chief Complaint Pain,Stiff,Paresthesia Symptom Type Ache,Sharp,Dull,Stabbing, Burning,Numbness,Tingling Symptoms Relieved By Rest/Positioning Symptoms Aggravated By Physical Activity,Lifting Prior Functional Limitations Lifting Current Functional Limitations Lifting,Housework,Driving, Sleeping Symptom Description Constant but Variable Level of pain today (0-10) 4 Pain scale - at its best (0-10) 2 Pain scale - at its worst (0-10) 10 Cervical Eval Palpation Cervical Muscles L CT Junction,L Upper Trapezius,L Thoracic Paraspinals Cervical/Thoracic Palpation Findings Tenderness Posture Head/C-Spine Posture Sitting Position Flexed Head/C-Spine Posture Standing Position Flexed Flexibility Deficits Upper Trapezius Muscle Length (L) Mild Tightness Scalene Group Muscle Length (L) Mild Tightness Passive Joint Mobility Cervical PIVM Dec: R C5/6 L C5/6 R C6/7 L C6/7 R C7/T1 L C7/T1 WNL: R OA L OA R AA L AA R C2/3 L C2/3 R C3/4 L C3/4 R C4/5 L C4/5 AROM Cervical Spine Extension Active Range of 0-20 Motion (degrees) Cervical Spine Flexion Active Range of 0-25 Motion (degrees) Cervical Spine Right Lateral Flexion 0-45 Active Range of Motion (degrees) Cervical Spine Left Lateral Flexion 0-40 Active Range of Motion (degrees) Cervical Spine Right Rotation Active 0-55 Range of Motion (degrees) Cervical Spine Left Rotation Active 0-55 Range of Motion (degrees) MMT Right Deltoid (C5) 5 Normal Biceps Brachii Strength Grade 5 Normal Wrist Extension Strength Grade 5 Normal Triceps Brachii Strength Grade 5 Normal Wrist Flexion Strength Grade 5 Normal Extensor Pollicis Longus Strength Grade 5 Normal Finger Abduction Strength Grade 5 Normal Left Deltoid (C5) 4 Good Biceps Brachii Strength Grade 5 Normal Wrist Extension Strength Grade 5 Normal Triceps Brachii Strength Grade 4 Good Wrist Flexion Strength Grade 5 Normal Extensor Pollicis Longus Strength Grade 5 Normal Finger Abduction Strength Grade 5 Normal Special Test C-Spine Foraminal Compression (Spurling) Positive Left Test C-Spine Foraminal Distraction Test Positive Neck Disability Index Neck Disability Index Section 1: Pain Intensity The pain is moderate at the moment Section 2: Personal Care (washing, I can look after myself dressing, etc.) normally but it causes extra pain Section 3: Lifting I can lift heavy weights but it gives extra pain Section 4: Reading I can read as much as I want to with slight pain in my neck Section 5: Headaches I have no headaches at all Section 6: Concentration I can concentrate fully when I want to with slight difficulty Section 7: Work I can only do my usual work, but no more Section 8: Driving I can drive my car without any neck pain Section 9: Sleeping My sleep is greatly disturbed (3-5 hrs sleepless) Section 10: Recreation I am able to engage in all my recreation activities with some pain in NDI Score 12 Outpatient Therapy Assessment Impairments Problems/Impairmments Palpation Tenderness,Impaired Range of Motion,Impaired Strength,Impaired Driving, Impaired Lifting,Impaired Household Care,Impaired Work Activities,Subjective C/O Pain ,Impaired Self Care/Self Management Prognosis Rehab Potential Good Clinical Impression Consistent with Diagnosis Yes Short Term Goals Number of Weeks 4 Decreased Palpation Tenderness Yes: 1-2/4 cervical,left sh girdle mm Increase Range of Motion Yes: 75% OF WFL CROM Increase Strength Yes: 4+/5 LEFT TRICEP/SHOULDER Increase Ability to Drive/Ride in Car Yes: 30MIN Restore Ability to Lift Objects to Waist Yes: 5# LUE Level Improve Ability For Household Care Yes: 30MIN Decrease Subjective C/O Pain Yes: 3-4/10 W/ABOVE ACTIVITIES Patient to be Ind w/ HEP Yes Group Home Goals Number of Weeks 6-8 Decreased Palpation Tenderness Yes: 0-1/4 CERVICAL,SH GIRDLE MM Increase Range of Motion Yes: WFL CROM Increase Strength Yes: 5/5 LEFT TRICEP,SH MM Increase Ability to Drive/Ride in Car Yes: 60MIN Restore Ability to Lift Objects to Waist Yes: 10# LUE Level Improve Ability For Household Care Yes: 60MIN Improve Tolerance to Work Activities Yes: WFL Improve Neck Disability Index Score Yes: 6-8 Decrease Subjective C/O Pain Yes: 0-2/10 W/ABOVE ACTIVITIES Patient to be Ind w/ Advanced HEP Yes Outpatient Therapy Plan of Care Treatment Plan May Include Therapeutic Exercise Including Home Yes Exercise Program Manual Therapy Techniques Yes Neuromuscular Re-education Yes Therapeutic Activities to Return to Yes Previous Functional/Work Level ADL/Self Care Education Yes Mechanical Traction Yes Dry Needling Yes Thermal Modalities Yes Electrical Stimulation Yes Ultrasound/Phonophoresis Yes Eval/Re-Eval Yes Frequency Times per week 2-3 Duration Number of Weeks 6-8 Addendums This patient is a candidate for social No or vocational rehab? Patient/Guardian verbally acknowledges Yes understanding of treatment program and consents to further treatment? Patient/Guardian verbally acknowledges Yes understanding of diagnosis, prognosis and goals for treatment? Eval Complexity PT Charges 00116 - Moderate Complexity Shoulder/Elbow Eval Shoulder Objective Measurements Elbow Objective Measurements PHYSICIAN CERTIFICATION: I certify the specified therapy services for Krish Matos [facility] are required, authorized, and reviewed every 30 days.
== END 2023-06-12 09:44 | disposition home or self-care (01) ==
LOC: PT 08:44
PROVIDERS: PCP Physician Assistant; Visit Provider Family Medicine
DX: M79.602 Pain in left arm (principal); M60.9 Myositis, unspecified
CPT/HCPCS: 97163

== ENCOUNTER 2023-06-12 09:19 | Outpatient (CLI) | payer BC, OTHER, SELFPAY ==
--- NOTE | 2023-06-12 09:24 | US_ITS ---
FINAL REPORT CLINICAL HISTORY: RT UPPER QUADRANT ABDOMEN PAIN FINDINGS: RIGHT UPPER QUADRANT ULTRASOUND Sonographic images of the right upper quadrant were obtained. The pancreas is partially obscured. There is fatty infiltration of the liver. The gallbladder appears normal without evidence of gallstones.The common duct measures 3 mm. Limited images of the right kidney are normal. IMPRESSION: Fatty liver. Reviewed, Interpreted and Dictated by Pj Paniagua III, MD Transcribed by [employer] [facility]
== END 2023-06-12 23:59 ==
LOC: RAD 09:20
PROVIDERS: PCP Physician Assistant; Visit Provider Family Medicine
DX: R10.11 Right upper quadrant pain (principal)
CPT/HCPCS: 76705

== ENCOUNTER 2024-05-31 08:03 | Outpatient (CLI) | payer BC, OTHER, SELFPAY ==
[2024-05-31 08:32] LABS: Basophils % 0.3 % (0.1-2.0); Eosinophils # 0.1 K/mm3 (0.0-0.4); Eosinophils % 1.6 % (0.1-12.0); Hematocrit 46.9 % (42.0-52.0); Hemoglobin 16.6 g/dL (14.1-18.0); Mean Corpuscular HGB Conc 35.4 g/dL (31.8-35.4); Mean Corpuscular Hemoglobin 31.2 pg (27.0-31.2); Mean Corpuscular Volume 88.2 fl (80-94); Mean Platelet Volume 10.8 fl (7.4-10.4); Monocytes # 0.5 K/mm3 (0.1-1.0); Monocytes % 6.9 % (1.7-9.3); Neutrophils # 4.2 K/mm3 (1.8-7.8); Neutrophils % 62.1 % (37.0-80.0); Platelet Count 183 K/mm3 (142-424); Red Blood Count 5.32 M/mm3 (4.60-6.20); Red Cell Distribution Width 12.2 % (11.5-17.5); White Blood Count 6.8 K/mm3 (4.8-10.8)
[2024-05-31 08:58] LABS: Hemoglobin A1C 7.7 % (4.0-6.0)
[2024-05-31 09:03] LABS: Albumin Level 4.5 g/dl (3.5-5.0); Chloride 105 mmol/L (98-107); Potassium 4.1 mmoL/L (3.5-5.1); Sodium 140 mmol/L (136-145)
[2024-05-31 09:06] LABS: Alanine Aminotransferase 51 U/L (12-78); Alkaline Phosphatase 82 U/L (38-126); Anion Gap 13.1 mEq/L (5-15); Aspartate Amino Transferase 36 U/L (17-59); Bilirubin,Total 0.7 mg/dl (0.2-1.3); Blood Urea Nitrogen 15 mg/dl (9-20); Calcium 9.4 mg/dl (8.4-10.2); Carbon Dioxide 26 mmol/L (22.0-30.0); Cholesterol 157 mg/dl (140-200); Estimated Glomerular Filt Rate 116 ml/min (>60); GFR (African American) 140 ML/MIN (>60); Globulin 2.3 g/dL (1.3-3.2); Glucose 194 mg/dl (74-100); Total Protein,Serum 6.8 g/dl (6.3-8.2); Triglycerides 300 mg/dl (30-150); VLDL Cholesterol 60 mg/dL (0-40)
[2024-05-31 09:07] LABS: Chol/HDL Ratio 6.3 (1-3.5); HDL Cholesterol 25 mg/dl (40-60)
[2024-05-31 09:17] LABS: Direct LDL Cholesterol 85.39 mg/dL (100-129)
[2024-05-31 09:24] LABS: Microalbumin < 6.000 mg/L (0-16.7)
== END 2024-05-31 23:59 | disposition home or self-care (01) ==
LOC: LAB 08:04
PROVIDERS: PCP Family Medicine; Visit Provider Physician Assistant
DX: E78.5 Hyperlipidemia, unspecified (principal); E11.9 Type 2 diabetes mellitus without complications; Z79.4 Long term (current) use of insulin; I10 Essential (primary) hypertension; Z87.891 Personal history of nicotine dependence
CPT/HCPCS: 36415; 80053; 80061; 82043; 83036; 84443; 85025

== ENCOUNTER 2025-02-07 08:01 | Outpatient (CLI) | payer BC, OTHER, SELFPAY ==
[2025-02-07 08:25] LABS: Hematocrit 47.3 % (42.0-52.0); Hemoglobin 16.4 g/dL (14.1-18.0); Immature Granulocytes % 0.3 %; Mean Corpuscular HGB Conc 34.7 g/dL (31.8-35.4); Mean Corpuscular Hemoglobin 31.1 pg (27.0-31.2); Mean Corpuscular Volume 89.6 fl (80-94); Nucleated Red Blood Cells % 0 %; Platelet Count 201 K/mm3 (142-424); Red Blood Count 5.28 M/mm3 (4.60-6.20); Red Cell Distribution Width-SD 38.5 fL; White Blood Count 7.3 K/mm3 (4.8-10.8)
[2025-02-07 10:23] LABS: Cholesterol 135 mg/dl (140-200); HDL Cholesterol 31 mg/dl (40-60); Triglycerides 225 mg/dl (30-150)
[2025-02-07 10:55] LABS: Thyroid Stimulating Hormone 4.31 uIU/mL (0.465-4.68)
== END 2025-02-07 23:59 | disposition home or self-care (01) ==
LOC: LAB 08:05
PROVIDERS: PCP Physician Assistant; Visit Provider Physician Assistant
DX: E78.2 Mixed hyperlipidemia (principal); E11.9 Type 2 diabetes mellitus without complications; I10 Essential (primary) hypertension; Z12.5 Encounter for screening for malignant neoplasm of prostate
CPT/HCPCS: 36415; 80061; 84443; 85025; G0103